=== PATIENT | female | born 1960 | race Caucasian/White ===

== ENCOUNTER 2018-09-07 18:28 | Inpatient (IN) | payer OTHER ==
[2018-09-07] MEDS ORDERED: SODIUM CHLORIDE 0.9% 1,000 ML IV STA (18:56)
[2018-09-07] MEDS ORDERED: ACETAMINOPHEN TAB 325 MG TAB PO STA (19:07)
[2018-09-07] MEDS ORDERED: IPRATROPIUM-ALBUTEROL 3 ML NEB INHALATION STA ×2 (19:11→19:59)
[2018-09-07] MEDS ORDERED: methylPREDNISolone SOD SUCCI 125 MG/2 ML VIAL IV STA (19:11)
--- NOTE | 2018-09-07 19:19 | ED ---
SOB HPI - General Chief Complaint: Shortness of Breath Stated Complaint: sumeet, chest congestion Time Seen by Provider: 09/07/18 18:55 Source: patient Mode of arrival: ambulatory Limitations: no limitations - History of Present Illness Initial Comments: 57-year-old female past history of coronary artery bypass 2015, hypertension presenting today for chief complaint of shortness of breath. Patient states that since April she has had upper respiratory symptoms. She states he's began shortly after visiting [place]. Patient denies any international travel she states she is vaccinated. Patient states that for the past 2 weeks she has had increasing cough sputum production she says she's had significant chills. She is unsure if she's had a fever but has felt as though her throat has been scratchy. Patient denies history of cancer blood clots leg swelling patient denies any hemoptysis. Patient states she is 11 day smoker half pack per day ho wever has not had a cigarette 3 days due to increasing shortness of breath. Patient denies any chest pain she has name upper back pain. Patient denies any diarrhea nausea vomiting. Patient denies any headache or neck stiffness. When shortness of breath persisted today patient presents emergency department for evaluation. - Related Data Home Medications Medication Instructions Recorded Confirmed Acetaminophen Tab [Tylenol Tab] 650 mg PO Q4H PRN 09/07/18 09/07/18 Chlorpheniramine Maleate 4 mg PO Q4H PRN 09/07/18 09/07/18 [Chlor-Trimeton] Ibuprofen [Motrin] 600 mg PO Q6H PRN 09/07/18 09/07/18 Lisinopril [Zestril] 10 mg PO BID@0630,1730 09/07/18 09/07/18 Multivitamins, Thera [Multivitamin 1 tab PO DAILY@1030 09/07/18 09/07/18 (formulary)] Thiamine [Vitamin B-1] 100 mg PO DAILY@1030 09/07/18 09/07/18 cloNIDine HCL [Catapres] 0.1 mg PO TID PRN 09/07/18 09/07/18 traZODone HCL 50 - 150 mg PO HS 09/07/18 09/07/18 Allergies Allergy/AdvReac Type Severity Reaction Status Date / Time No Known Allergies Allergy Verified 09/07/18 20:15 Review of Systems ROS Statement: Those systems with pertinent positive or pertinent negative responses have been documented in the HPI. ROS Other: All systems not noted in ROS Statement are negative. Past Medical History Past Medical History: Hypertension History of Any Multi-Drug Resistant Organisms: None Reported Past Surgical History: Coronary Bypass/CABG Past Psychological History: Anxiety, Depression Smoking Status: Current every day smoker Past Alcohol Use History: Abuse Past Drug Use History: None Reported General Exam - General Exam Comments Initial Comments: General: The patient is awake and alert, in no distress. Eye: +3 mm pupils are equal, round and reactive to light, extra-ocular movement s are intact. No nystagmus. There is normal conjunctiva bilaterally. No signs of icterus. No photophobia Ears, nose, mouth and throat: There are moist mucous membranes and no oral lesions. Oropharynx was not erythematous there is no tonsillar enlargement exudates or lesions. Uvula midline. Tympanic membranes are not erythematous or is no effusions bulging or retraction. No tenderness to palpation of the mastoid. No anterior cervical lymphadenopathy. Rhinorrhea, clear and bilateral nares. No tripoding, no drooling. Neck: The neck is supple, there is no tenderness or JVD. No nuchal rigidity negative Brudzinski and Kernig Cardiovascular: There is a regular rate and rhythm. No murmur, rub or gallop is appreciated. Respiratory: Lungs sounds are diminished with expiratory wheeze. Respirations are non-labored, breath sounds are equal. Crackles audible at the left lower lung base. No stridor, rhonchi. No retractions or abdominal breathing. Gastrointestinal: Soft, non-distended, non-tender abdomen without masses or organomegaly noted. There is no rebound or guarding present. Bowel sounds are unremarkable. Musculoskeletal: Normal ROM, no tenderness. Strength 5/5. Sensation intact. Radial pulses equal bilaterally 2+. Neurological: A&O x 3. CN II-XII intact, There are no obvious motor or sensory deficits. Coordination appears grossly intact. Speech appears normal, no muffling. Skin: Skin is warm and dry and no rashes or lesions are noted. No extremity edema Psychiatric: Cooperative Limitations: no limitations Course Vital Signs 09/07/18 09/07/18 09/07/18 18:45 19:15 19:34 Temperature 98.7 F 100.1 F H Pulse Rate 91 82 Respiratory 24 Rate Blood Pressure 144/78 O2 Sat by Pulse 92 L Oximetry 09/07/18 09/07/18 09/07/18 19:38 20:00 20:30 Temperature Pulse Rate 84 88 Respiratory Rate Blood Pressure 188/102 O2 Sat by Pulse 100 Oximetry 09/07/18 09/07/18 20:34 20:38 Temperature Pulse Rate 75 87 Respiratory 18 Rate Blood Pressure 159/93 O2 Sat by Pulse 98 Oximetry Medical Decision Making - Medical Decision Making [id number] female presenting for shortness of breath. No complaints of CP. EKG no acute findings. Troponin (-). Denies leg swelling, hemoptysis, cancer, recent surgeries, clotting disorders. Patient has audible expiratory wheeze admission lung sounds as well as a significant left lung base crackle. Patient notes upper respiratory symptoms. Patient febrile upon arrival. Patient heart rate was elevated at 93. Patient was given ceftriaxone the emergency department. Chest x-ray reveals a small left-sided pleural effusion.Infiltrate was noted. However clinically patient appears to have a kidney required pneumonia. Patient is not a smoker given the extent of the extremities despite multiple DuoNeb treatments I feel patient has a component of COPD exacerbation. Patient is given Solu-Medrol in the emergency department, as well as Mucinex. Attending provider Brooks did evaluate patient in person. At this time we feel patient would benefit from admission for scheduled breathing treatments, IV abx, and steroids. Patient is agreeable with admission. Dr. Guy spoke with admitted provider Dr. Lucia who accepted patient. - Lab Data Result diagrams: 09/07/18 19:30 09/07/18 19:30 Lab Results 09/07/18 09/07/18 09/07/18 Range/Units 19:30 19:30 19:30 WBC 9.2 (3.8-10.6) k/uL RBC 4.22 (3.80-5.40) m/uL Hgb 12.7 (11.4-16.0) gm/dL Hct 40.8 (34.0-46.0) % MCV 96.6 (80.0-100.0) fL MCH 30.1 (25.0-35.0) pg MCHC 31.2 (31.0-37.0) g/dL RDW 15.0 (11.5-15.5) % Plt Count 157 (150-450) k/uL Neutrophils % 78 % Lymphocytes % 12 % Monocytes % 5 % Eosinophils % 2 % Basophils % 1 % Neutrophils # 7.2 (1.3-7.7) k/uL Lymphocytes # 1.1 (1.0-4.8) k/uL Monocytes # 0.5 (0-1.0) k/uL Eosinophils # 0.2 (0-0.7) k/uL Basophils # 0.0 (0-0.2) k/uL PT (9.0-12.0) sec INR (<1.2) APTT (22.0-30.0) sec Sodium 142 (137-145) mmol/L Potassium 5.2 H (3.5-5.1) mmol/L Chloride 108 H (98-107) mmol/L Carbon Dioxide 26 (22-30) mmol/L Anion Gap 8 mmol/L BUN 8 (7-17) mg/dL Creatinine 0.79 (0.52-1.04) mg/dL Est GFR (CKD-EPI)AfAm >90 (>60 ml/min/1.73 sqM) Est GFR (CKD-EPI)NonAf 84 (>60 ml/min/1.73 sqM) Glucose 113 H (74-99) mg/dL Plasma Lactic Acid Indra (0.7-2.0) mmol/L Calcium 9.3 (8.4-10.2) mg/dL Total Bilirubin 0.6 (0.2-1.3) mg/dL AST 50 H (14-36) U/L ALT 28 (9-52) U/L Alkaline Phosphatase 54 (38-126) U/L Troponin I (0.000-0.034) ng/mL NT-Pro-B Natriuret Pep 202 pg/mL Total Protein 7.1 (6.3-8.2) g/dL Albumin 4.0 (3.5-5.0) g/dL Influenza Type A RNA (Not Detectd) Influenza Type B (PCR) (Not Detectd) 09/07/18 09/07/18 09/07/18 Range/Units 19:30 19:30 19:30 WBC (3.8-10.6) k/uL RBC (3.80-5.40) m/uL Hgb (11.4-16.0) gm/dL Hct (34.0-46.0) % MCV (80.0-100.0) fL MCH (25.0-35.0) pg MCHC (31.0-37.0) g/dL RDW (11.5-15.5) % Plt Count (150-450) k/uL Neutrophils % % Lymphocytes % % Monocytes % % Eosinophils % % Basophils % % Neutrophils # (1.3-7.7) k/uL Lymphocytes # (1.0-4.8) k/uL Monocytes # (0-1.0) k/uL Eosinophils # (0-0.7) k/uL Basophils # (0-0.2) k/uL PT 10.1 (9.0-12.0) sec INR 0.9 (<1.2) APTT 23.6 (22.0-30.0) sec Sodium (137-145) mmol/L Potassium (3.5-5.1) mmol/L Chloride (98-107) mmol/L Carbon Dioxide (22-30) mmol/L Anion Gap mmol/L BUN (7-17) mg/dL Creatinine (0.52-1.04) mg/dL Est GFR (CKD-EPI)AfAm (>60 ml/min/1.73 sqM) Est GFR (CKD-EPI)NonAf (>60 ml/min/1.73 sqM) Glucose (74-99) mg/dL Plasma Lactic Acid Indra 1.4 (0.7-2.0) mmol/L Calcium (8.4-10.2) mg/dL Total Bilirubin (0.2-1.3) mg/dL AST (14-36) U/L ALT (9-52) U/L Alkaline Phosphatase (38-126) U/L Troponin I <0.012 (0.000-0.034) ng/mL NT-Pro-B Natriuret Pep pg/mL Total Protein (6.3-8.2) g/dL Albumin (3.5-5.0) g/dL Influenza Type A RNA (Not Detectd) Influenza Type B (PCR) (Not Detectd) 09/07/18 Range/Units 19:30 WBC (3.8-10.6) k/uL RBC (3.80-5.40) m/uL Hgb (11.4-16.0) gm/dL Hct (34.0-46.0) % MCV (80.0-100.0) fL MCH (25.0-35.0) pg MCHC (31.0-37.0) g/dL RDW (11.5-15.5) % Plt Count (150-450) k/uL Neutrophils % % Lymphocytes % % Monocytes % % Eosinophils % % Basophils % % Neutrophils # (1.3-7.7) k/uL Lymphocytes # (1.0-4.8) k/uL Monocytes # (0-1.0) k/uL Eosinophils # (0-0.7) k/uL Basophils # (0-0.2) k/uL PT (9.0-12.0) sec INR (<1.2) APTT (22.0-30.0) sec Sodium (137-145) mmol/L Potassium (3.5-5.1) mmol/L Chloride (98-107) mmol/L Carbon Dioxide (22-30) mmol/L Anion Gap mmol/L BUN (7-17) mg/dL Creatinine (0.52-1.04) mg/dL Est GFR (CKD-EPI)AfAm (>60 ml/min/1.73 sqM) Est GFR (CKD-EPI)NonAf (>60 ml/min/1.73 sqM) Glucose (74-99) mg/dL Plasma Lactic Acid Indra (0.7-2.0) mmol/L Calcium (8.4-10.2) mg/dL Total Bilirubin (0.2-1.3) mg/dL AST (14-36) U/L ALT (9-52) U/L Alkaline Phosphatase (38-126) U/L Troponin I (0.000-0.034) ng/mL NT-Pro-B Natriuret Pep pg/mL Total Protein (6.3-8.2) g/dL Albumin (3.5-5.0) g/dL Influenza Type A RNA Not Detected (Not Detectd) Influenza Type B (PCR) Not Detected (Not Detectd) - EKG Data EKG Comments: Ventricular rate 82 bpm, AZ interval 174 ms, QRS duration 76 ms, QT/QTC 370/441 ms. There is no [address] elevation or depression. Nonspecific T-wave. Disposition Clinical Impression: Shortness of breath, COPD exacerbation, Community acquired pneumonia Disposition: ADMITTED IP TO THIS HOSP Condition: Stable Is patient prescribed a controlled substance at d/c from ED?: No Referrals: None,Stated [Primary Care Provider] - 1-2 days Time of Disposition: 21:07 Decision to Admit Reason: Admit from EC Decision Date: 09/07/18 Decision Time: 21:07
[2018-09-07 19:46] LABS: Basophils % (A) 1 %; Eosinophils # (A) 0.2 k/uL (0-0.7); Eosinophils % (A) 2 %; HCT 40.8 % (34.0-46.0); HGB 12.7 gm/dL (11.4-16.0); Lymphocytes # (A) 1.1 k/uL (1.0-4.8); Lymphocytes % (A) 12 %; MCH 30.1 pg (25.0-35.0); MCHC 31.2 g/dL (31.0-37.0); MCV 96.6 fL (80.0-100.0); Monocytes # (A) 0.5 k/uL (0-1.0); Monocytes % (A) 5 %; Neutrophils # (A) 7.2 k/uL (1.3-7.7); Neutrophils % (A) 78 %; Platelet Count 157 k/uL (150-450); RBC 4.22 m/uL (3.80-5.40); WBC 9.2 k/uL (3.8-10.6)
[2018-09-07 19:55] LABS: ALT 28 U/L (9-52); AST 50 U/L (14-36); African American GFR (CKD) >90 (>60 ml/min/1.73 sqM); Alkaline Phosphatase 54 U/L (38-126); Anion Gap 8 mmol/L; Blood Urea Nitrogen 8 mg/dL (7-17); Calcium 9.3 mg/dL (8.4-10.2); Carbon Dioxide 26 mmol/L (22-30); Chloride 108 mmol/L (98-107); Glucose 113 mg/dL (74-99); INR 0.9 (<1.2); Partial Thromboplastin Time 23.6 sec (22.0-30.0); Prothrombin Time 10.1 sec (9.0-12.0); Sodium 142 mmol/L (137-145); Total Bilirubin 0.6 mg/dL (0.2-1.3); Total Protein 7.1 g/dL (6.3-8.2)
[2018-09-07 20:00] LABS: Potassium 5.2 mmol/L (3.5-5.1)
--- NOTE | 2018-09-07 20:09 | XR ---
EXAMINATION TYPE: XR chest 2V DATE OF EXAM: 09/07/2018 COMPARISON: NONE HISTORY: Difficulty in breathing, cough, and congestion. TECHNIQUE: Frontal and lateral views of the chest are obtained. FINDINGS: Overlying sternal wires and mediastinal clips are present bilaterally. There is tiny left- sided pleural effusion with blunting of posterior costophrenic angle on lateral view. No suspicious f ocal airspace opacity or pneumothorax. The cardiac silhouette size is upper limits of normal. The o sseous structures are intact. IMPRESSION: Tiny left pleural effusion without suspicious focal infiltrate.
[2018-09-07] MEDS ORDERED: guaiFENesin 600 MG TABLET.ER PO STA (20:33)
[2018-09-07] MEDS ORDERED: LORazepam 2 MG/ML INJ IV PRN ×3 (21:55)
[2018-09-07] MEDS ORDERED: THIAMINE 100 MG/ML 2 ML VIAL IM STA (21:55)
[2018-09-07] MEDS ORDERED: hydrALAZINE HCL 20 MG/ML 1 ML VIAL IVP STA (21:56)
[2018-09-07] MEDS: AZITHROMYCIN 500 MG TAB PO SCH (22:08)
[2018-09-07] MEDS: BENZONATATE 100 MG CAP PO SCH (22:59)
[2018-09-08] MEDS: IPRATROPIUM-ALBUTEROL 3 ML NEB INHALATION PRN ×3 (02:56→11:03)
[2018-09-08] MEDS: ACETAMINOPHEN TAB 325 MG TAB PO PRN ×2 (03:55→14:49)
[2018-09-08] MEDS ORDERED: predniSONE 20 MG TAB PO SCH (09:00)
[2018-09-08] MEDS: BENZONATATE 100 MG CAP PO SCH ×3 (09:05→22:18)
[2018-09-08] MEDS: guaiFENesin 600 MG TABLET.ER PO SCH ×2 (09:05→22:19)
[2018-09-08] MEDS: THIAMINE 100 MG TAB PO SCH ×2 (09:05→17:29)
[2018-09-08] MEDS: hydrALAZINE HCL 20 MG/ML 1 ML VIAL IVP PRN ×2 (09:07→21:04)
[2018-09-08] MEDS: AZITHROMYCIN 500 MG TAB PO SCH (10:02)
[2018-09-08 11:41] LABS: Glucose,Whole Blood 131 mg/dL (75-99)
[2018-09-08] MEDS ORDERED: IBUPROFEN 600 MG TAB PO PRN (15:24)
[2018-09-08] MEDS ORDERED: ACETAMINOPHEN TAB 325 MG TAB PO PRN (15:24)
[2018-09-08] MEDS ORDERED: diphenhydrAMINE 25 MG CAP PO PRN (15:24)
[2018-09-08] MEDS ORDERED: TEMAZEPAM 15 MG CAP PO PRN (15:27)
[2018-09-08] MEDS ORDERED: INSULIN REGULAR 100 UNIT/ML VIAL IV PRN (15:28)
[2018-09-08] MEDS: IPRATROPIUM-ALBUTEROL 3 ML NEB INHALATION SCH ×3 (15:43→20:39)
[2018-09-08 17:05] LABS: Glucose,Whole Blood 140 mg/dL (75-99)
[2018-09-08] MEDS: LISINOPRIL 10 MG TAB PO SCH (17:29)
[2018-09-08] MEDS: methylPREDNISolone SOD SUCCI 125 MG/2 ML VIAL IV SCH (17:30)
[2018-09-08] MEDS: INSULIN ASPART (NovoLOG) 100 UNIT/ML VIAL SQ SCH ×2 (17:45→21:06)
--- NOTE | 2018-09-08 17:49 | P.CNPUL ---
History of Present Illness Consult date: 09/08/18 Requesting physician: Anthony Lucia Reason for consult: COPD Chief complaint: shortness of breath and chest congestion History of present illness: this is a 57-year-old female known history of coronary artery disease, previous CABG in 2015 at [facility], history of hypertension, recovered alcoholic, smoker, patient was admitted through the emergency room earlier today with 2 weeks history of cough wheezing shortness of breath. Cough is productive with yellow phlegm, she had some chills, no documented fevers. Patient also been complaining of a scratchy throat. She was recently in [place], but when she came back to [place] her symptoms have become much worse. Patient is normally a smoker but she hasn't smoked in the last 3 days. Chest x-ray on admission showed no evidence of infiltrate. Patient was admitted with the impression of acute exacerbation of COPD and purulent tracheobronchitis. Denies any chest pain, no hemoptysis, denies any symptoms of GERD, denies any symptoms of postnasal drip. Patient is normally not on any bronchodilators, and she was never diagnosed as having COPD. Review of Systems CONSTITUTIONAL: No fever, no malaise, no fatigue. HEENT: No recent visual problems or hearing problems. Denied any sore throat. CARDIOVASCULAR: No orthopnea, PND, no palpitations, no syncope. PULMONARY: as noted in HPI, mostly shortness of breath cough wheezing cough is productive with yellow phlegm. GASTROINTESTINAL: No diarrhea, no nausea, no vomiting, no abdominal pain. Normoactive bowel sounds. NEUROLOGICAL: No headaches, no weakness, no numbness. history of right sided hemiparesis secondary to electrocution while on the job. HEMATOLOGICAL: Denies any bleeding or petechiae. GENITOURINARY: denies any hematuria frequency or urgency MUSCULOSKELETAL/RHEUMATOLOGICAL: Denies any joint pain, swelling, or any muscle pain. ENDOCRINE: Denies any polyuria or polydipsia. Past Medical History Past Medical History: Hypertension Additional Past Medical History / Comment(s): Depression History of Any Multi-Drug Resistant Organisms: None Reported Past Surgical History: Coronary Bypass/CABG Past Anesthesia/Blood Transfusion Reactions: No Reported Reaction Past Psychological History: Anxiety, Depression Smoking Status: Current every day smoker Past Alcohol Use History: Abuse Past Drug Use History: None Reported - Past Family History Mother Additional Family Medical History / Comment(s): colitis Father Additional Family Medical History / Comment(s): still alive Medications and Allergies Home Medications Medication Instructions Recorded Confirmed Type Acetaminophen Tab [Tylenol Tab] 650 mg PO Q4H PRN 09/07/18 09/07/18 History Chlorpheniramine Maleate 4 mg PO Q4H PRN 09/07/18 09/07/18 History [Chlor-Trimeton] Ibuprofen [Motrin] 600 mg PO Q6H PRN 09/07/18 09/07/18 History Lisinopril [Zestril] 10 mg PO BID@0630,1730 09/07/18 09/07/18 History Multivitamins, Thera [Multivitamin 1 tab PO DAILY@1030 09/07/18 09/07/18 History (formulary)] Thiamine [Vitamin B-1] 100 mg PO DAILY@1030 09/07/18 09/07/18 History cloNIDine HCL [Catapres] 0.1 mg PO TID PRN 09/07/18 09/07/18 History traZODone HCL 50 - 150 mg PO HS 09/07/18 09/07/18 History Allergies Allergy/AdvReac Type Severity Reaction Status Date / Time No Known Allergies Allergy Verified 09/07/18 20:15 Physical Exam Vitals: Vital Signs Temp Pulse Pulse Resp BP BP Pulse Ox 09/08/18 15:57 90 09/08/18 15:47 90 09/08/18 15:00 98.3 F 97 12 177/82 95 09/08/18 11:14 98 09/08/18 11:03 86 09/08/18 08:17 94 09/08/18 07:52 85 95 09/08/18 07:18 94 L 09/08/18 07:15 98.5 F 82 14 174/91 90 L 09/08/18 03:20 92 09/08/18 02:56 88 95 09/08/18 01:30 98.4 F 78 17 118/49 96 09/07/18 22:50 98.5 F 89 18 188/81 94 L 09/07/18 22:32 160/86 09/07/18 22:17 98 F 185/97 93 L 09/07/18 20:38 87 09/07/18 20:34 75 18 159/93 98 09/07/18 20:30 88 09/07/18 20:00 188/102 100 09/07/18 19:38 84 09/07/18 19:34 82 09/07/18 19:15 100.1 F H 09/07/18 18:45 98.7 F 91 24 144/78 92 L Intake and Output 09/08/18 09/08/18 09/08/18 06:59 14:59 22:59 Intake Total 480 1100 Balance 480 1100 Intake: Intake, IV Titration 100 Amount cefTRIAXone 1 gm In 100 Sodium Chloride 0.9% 50 ml @ 100 mls/hr IVPB ONCE STA Rx#:[id number] Oral 480 1000 Other: # Voids 1 Physical Exam: Revealed a 57-year-old white female pleasant, in no distress. Head: Atraumatic, normocephalic HEENT:[Neck is supple.] [No neck masses.] [No thyromegaly.] [No JVD.]PERRLA, EOMI, no icterus. Moist mucous membranes. Throat is clear. Chest: [rhonchi and wheezes noted bilaterally more so on forced expiratory maneuver. Cardiac Exam: [Normal S1 and S2, no S3 gallop, no murmur.] Abdomen: [Soft, nontender, no megaly, no rebound, no guarding, normal bowel sounds.] Extremities: [No clubbing, no edema, no cyanosis.] Neurological Exam: [No focal neurologic deficit.]alert oriented 3. Psychiatric: Normal mood affect and mental status examination. Skin: No rashes. Lymphatics: No lymphadenopathy. Results - Laboratory Findings CBC and BMP: 09/07/18 19:30 09/07/18 19:30 PT/INR, D-dimer PT 10.1 sec (9.0-12.0) 09/07/18 19:30 INR 0.9 (<1.2) 09/07/18 19:30 Abnormal lab findings: Abnormal Labs 09/07/18 09/08/18 09/08/18 19:30 11:39 17:03 Potassium 5.2 H Chloride 108 H Glucose 113 H POC Glucose (mg/dL) 131 H 140 H AST 50 H - Diagnostic Findings Chest x-ray: image reviewed (as noted in HPI.) Assessment and Plan Assessment: Acute exacerbation of COPD Nicotine dependence syndrome Acute purulent tracheobronchitis history of coronary artery disease and previous CABG Recovered alcoholic. Recommendation: Fully agree with the present treatment plan including antibiotics, bronchodilators, steroids, consider regarding smoking cessation, reviewed and discussed with the patient her chest x-ray, her laboratory findings, and I expect her to do well in the next 24-48 hours, and to stay discharge in the next 24-48 hours. We'll continue to follow.
--- NOTE | 2018-09-08 18:01 | HP ---
HISTORY AND PHYSICAL CHIEF COMPLAINT: Shortness of breath. HISTORY OF PRESENT ILLNESS: This 57-year-old woman with a past medical history of multiple medical problems, including hypertension, depression, history of CAD, CABG, history of anxiety, depression, being followed by no primary physician in the outpatient setting, recently spent time in [place]. The patient apparently had upper respiratory symptoms and some sinus drainage. The patient also had some increasing cough and sputum production. The patient apparently was exposed to red dye, also. The patient went to [place] for alcohol rehab, where she was found to have significant shortness of breath. The patient was taken to [facility] and admitted for further evaluation and treatment. There is no history of any fever, rigor or chills. No history of any headache, loss of consciousness, seizures at this time. PAST MEDICAL HISTORY: 1. History of hypertension. 2. Depression. 3. CAD, CABG. 4. Anxiety, depression. HOME MEDICATIONS: 1. Trazodone 50 - 150 mg p.o. at bedtime. 2. Catapres 0.1 t.i.d. p.r.n. 3. Vitamin B1 100 mg p.o. daily. 4. Multivitamins 1 p.o. daily. 5. Zestril 10 mg p.o. b.i.d. 6. Motrin 600 mg p.o. q.6. 7. Chlor-Trimeton 4 mg q.4 p.r.n. 8. Tylenol 650 q.4 p.r.n. ALLERGIES: NONE. FAMILY HISTORY: History of colitis in the family. SOCIAL HISTORY: History of smoking. History of alcohol. REVIEW OF SYSTEMS: ENT: No diminished hearing. No diminished vision. CARDIOVASCULAR SYSTEM: No angina, palpitations. RESPIRATORY SYSTEM: As mentioned earlier. GI: No nausea, vomiting. : No dysuria or retention. NERVOUS SYSTEM: No numbness, weakness. ALLERGY/IMMUNOLOGY: No asthma, hayfever. MUSCULOSKELETAL: As mentioned earlier. HEMATOLOGY/ONCOLOGY: No history of anemia. ENDOCRINE: No history of diabetes, hypothyroidism. CONSTITUTIONAL: As mentioned earlier. DERMATOLOGY: Negative. RHEUMATOLOGY: Negative. PSYCHIATRY: As mentioned earlier. PHYSICAL EXAMINATION: Alert and oriented x3. Pulse 94, blood pressure 174/91, respiration 14, temperature 98.4, pulse ox 90% on room air. HEENT: Conjunctivae normal. Oral mucosa moist. NECK: No jugular venous distention. No carotid bruit. No lymph node enlargement. CARDIOVASCULAR SYSTEM: S1, S2 muffled. RESPIRATORY SYSTEM: Breath sounds diminished at the bases. Bilateral scattered rhonchi and crackles. Expiratory wheezing also present. ABDOMEN: Soft, non-tender. No mass palpable. LEGS: No edema. No swelling. NERVOUS SYSTEM: Higher functions as mentioned earlier. Moves all 4 limbs. No focal motor or sensory deficit. LYMPHATICS: No lymph node palpable in neck, axillae or groin. SKIN: No ulcer, rash, bleeding. JOINTS: No active deforming arthropathy. LABS: CBC within normal limits. Sodium 142, potassium 5.2, glucose 113 and 131. ASSESSMENT: 1. Chronic obstructive pulmonary disease, acute exacerbation, with acute purulent tracheobronchitis. 2. Hypertension. 3. Depression. 4. Coronary artery disease, coronary artery bypass grafting. 5. Anxiety, depression. 6. Rule out bronchial asthma. 7. History of ETOH. 8. Increased potassium. RECOMMENDATIONS AND DISCUSSION: In this 57-year-old woman who presented with multiple complex medical issues, we will monitor the patient closely, continue the current medications, continue with symptomatic treatment. I recommend intensive bronchodilators, steroids and antibiotics. I also recommend consultation with Dr. Barraza from the pulmonary point of view and then continue to monitor. DVT prophylaxis. Further recommendations to follow. I also recommend close followup with a primary physician in the outpatient setting. Smoking cessation. Prognosis guarded. Further recommendations to follow. MMODL / IJN: [id number] /
[2018-09-08] MEDS: FORMOTEROL FUMARATE 20 MCG/2 ML NEBU INHALATION SCH ×2 (20:18→20:39)
[2018-09-08] MEDS: BUDESONIDE 1 MG/2 ML NEBU INHALATION SCH ×2 (20:18→20:39)
[2018-09-08 20:36] LABS: Glucose,Whole Blood 128 mg/dL (75-99)
[2018-09-08] MEDS ORDERED: SODIUM CHLORIDE 0.9% 1,000 ML IV ONE (22:14)
[2018-09-08] MEDS: cloNIDine HCL 0.1 MG TAB PO PRN (22:18)
[2018-09-08] MEDS: HEPARIN SODIUM,PORCINE 5,000 UNIT/ML 1 ML VIAL SQ SCH ×2 (22:18→22:21)
[2018-09-09] MEDS: traZODone HCL 50 MG TAB PO SCH ×2 (00:19→21:44)
[2018-09-09] MEDS: methylPREDNISolone SOD SUCCI 125 MG/2 ML VIAL IV SCH ×3 (00:19→12:27)
[2018-09-09] MEDS: LISINOPRIL 10 MG TAB PO SCH ×2 (05:52→17:40)
[2018-09-09] MEDS: ACETAMINOPHEN TAB 325 MG TAB PO PRN (06:01)
[2018-09-09 07:10] LABS: Glucose,Whole Blood 134 mg/dL (75-99)
[2018-09-09 08:00] LABS: Basophils % (A) 0 %; Eosinophils # (A) 0.1 k/uL (0-0.7); Eosinophils % (A) 1 %; HCT 43.5 % (34.0-46.0); HGB 13.4 gm/dL (11.4-16.0); Hypochromasia Slight; Lymphocytes % (A) 8 %; MCH 30.1 pg (25.0-35.0); MCHC 30.9 g/dL (31.0-37.0); MCV 97.3 fL (80.0-100.0); Mean Platelet Volume 10.2; Monocytes # (A) 0.1 k/uL (0-1.0); Monocytes % (A) 1 %; Neutrophils # (A) 10.2 k/uL (1.3-7.7); Neutrophils % (A) 90 %; Platelet Count 171 k/uL (150-450); RBC 4.47 m/uL (3.80-5.40); RDW 15.9 % (11.5-15.5); WBC 11.4 k/uL (3.8-10.6)
[2018-09-09] MEDS: INSULIN ASPART (NovoLOG) 100 UNIT/ML VIAL SQ SCH ×4 (08:10→20:57)
[2018-09-09 08:11] LABS: African American GFR (CKD) >90 (>60 ml/min/1.73 sqM); Anion Gap 12 mmol/L; Blood Urea Nitrogen 11 mg/dL (7-17); Calcium 9.9 mg/dL (8.4-10.2); Carbon Dioxide 21 mmol/L (22-30); Chloride 110 mmol/L (98-107); Glucose 128 mg/dL (74-99); Potassium 4.3 mmol/L (3.5-5.1); Sodium 143 mmol/L (137-145)
[2018-09-09] MEDS: HEPARIN SODIUM,PORCINE 5,000 UNIT/ML 1 ML VIAL SQ SCH ×2 (08:11→20:57)
[2018-09-09] MEDS: NICOTINE 14MG/24HR PATCH TRANSDERM SCH (08:14)
[2018-09-09] MEDS: AZITHROMYCIN 500 MG TAB PO SCH (08:15)
[2018-09-09] MEDS: guaiFENesin 600 MG TABLET.ER PO SCH (08:15)
[2018-09-09] MEDS: FORMOTEROL FUMARATE 20 MCG/2 ML NEBU INHALATION SCH (08:16)
[2018-09-09] MEDS: PANTOPRAZOLE 40 MG TABLET PO SCH (08:16)
[2018-09-09] MEDS: THIAMINE 100 MG TAB PO SCH ×2 (08:16→17:40)
[2018-09-09] MEDS: IPRATROPIUM-ALBUTEROL 3 ML NEB INHALATION SCH (08:16)
[2018-09-09] MEDS: BENZONATATE 100 MG CAP PO SCH ×3 (08:16→21:44)
[2018-09-09] MEDS: BUDESONIDE 1 MG/2 ML NEBU INHALATION SCH ×2 (08:16→19:29)
[2018-09-09] MEDS: MULTIVITAMINS, THERA 1 EACH TAB PO SCH (08:16)
[2018-09-09] MEDS: ALBUTEROL NEBULIZED 2.5 MG/3 ML INHALATION PRN ×3 (12:00→20:32)
[2018-09-09 12:13] LABS: Glucose,Whole Blood 123 mg/dL (75-99)
--- NOTE | 2018-09-09 13:54 | P.PN ---
Subjective Progress Note Date: 09/09/18 Principal diagnosis: Acute exacerbation of COPD this is a 57-year-old female known history of coronary artery disease, previous CABG in 2015 at [facility], history of hypertension, recovered alcoholic, smoker, patient was admitted through the emergency room earlier today with 2 weeks history of cough wheezing shortness of breath. Cough is productive with yellow phlegm, she had some chills, no documented fevers. Patient also been complaining of a scratchy throat. She was recently in [place], but when she came back to [place] her symptoms have become much worse. Patient is normally a smoker but she hasn't smoked in the last 3 days. Chest x-ray on admi ssion showed no evidence of infiltrate. Patient was admitted with the impression of acute exacerbation of COPD and purulent tracheobronchitis. Denies any chest pain, no hemoptysis, denies any symptoms of GERD, denies any symptoms of postnasal drip. Patient is normally not on any bronchodilators, and she was never diagnosed as having COPD. Patient was reevaluated today on 09/09/2018, patient is feeling better, but she continues to have intermittent episodes of cough wheezing shortness of breath. Patient also complained about her updrafts making her quite tachycardic, and she was experiencing palpitations. This morning some of them were placed on hold, and at this point I recommended stopping Atrovent, stopping Perforomist, but we'll continue albuterol, and we'll continue Pulmicort. In the meantime we'll continue IV Solu-Medrol, and I would likely recommend discharging the patient ho me in the next 24 hours. Patient was made aware that albuterol will make her a bit tachycardic, and no Xopenex is available in our formulary to be given instead of albuterol. Nonetheless, patient is feeling better compared to yesterday. Objective - Vital Signs Vital signs: Vital Signs Temp 98.1 F 09/09/18 07:45 Pulse 93 09/09/18 12:09 Resp 16 09/09/18 08:00 BP 166/76 09/09/18 07:45 Pulse Ox 92 L 09/09/18 07:45 Intake & Output 09/08/18 09/09/18 09/09/18 18:59 06:59 18:59 Intake Total 1100 1000 Balance 1100 1000 Intake: Intake, IV Titration 100 1000 Amount Sodium Chloride 0.9% 1, 1000 000 ml @ 999 mls/hr IV . Q1H1M ONE Rx#:[id number] cefTRIAXone 1 gm In 100 Sodium Chloride 0.9% 50 ml @ 100 mls/hr IVPB ONCE STA Rx#:[id number] Oral 1000 - Exam Physical Exam: Revealed a 57-year-old white female pleasant, in no distress. Head: Atraumatic, normocephalic HEENT:[Neck is supple.] [No neck masses.] [No thyromegaly.] [No JVD.]PERRLA, EOMI, no icterus. Moist mucous membranes. Throat is clear. Chest: [Wheezing noted bilaterally more so the left base and more so on forced expiratory maneuver.. Cardiac Exam: [Normal S1 and S2, no S3 gallop, no murmur.] Abdomen: [Soft, nontender, no megaly, no rebound, no guarding, normal bowel sounds.] Extremities: [No clubbing, no edema, no cyanosis.] Neurological Exam: [No focal neurologic deficit.]alert oriented 3. Psychiatric: Normal mood affect and mental status examination. Skin: No rashes. Lymphatics: No lymphadenopathy. - Labs CBC & Chem 7: 09/09/18 07:15 09/09/18 07:15 Labs: Abnormal Lab Results - Last 24 Hours (Table) 09/08/18 09/08/18 09/09/18 Range/Units 17:03 20:35 06:59 WBC (3.8-10.6) k/uL MCHC (31.0-37.0) g/dL RDW (11.5-15.5) % Neutrophils # (1.3-7.7) k/uL Chloride (98-107) mmol/L Carbon Dioxide (22-30) mmol/L Glucose (74-99) mg/dL POC Glucose (mg/dL) 140 H 128 H 134 H (75-99) mg/dL 09/09/18 09/09/18 09/09/18 Range/Units 07:15 07:15 12:02 WBC 11.4 H (3.8-10.6) k/uL MCHC 30.9 L (31.0-37.0) g/dL RDW 15.9 H (11.5-15.5) % Neutrophils # 10.2 H (1.3-7.7) k/uL Chloride 110 H (98-107) mmol/L Carbon Dioxide 21 L (22-30) mmol/L Glucose 128 H (74-99) mg/dL POC Glucose (mg/dL) 123 H (75-99) mg/dL Microbiology - Last 24 Hours (Table) 09/07/18 19:50 Blood Culture - Preliminary Blood No Growth after 24 hours Assessment and Plan Assessment: Acute exacerbation of COPD Nicotine dependence syndrome Acute purulent tracheobronchitis history of coronary artery disease and previous CABG Recovered alcoholic. Recommendation: Continue present treatment plan including bronchodilators and Solu-Medrol. Continue antibiotics. However considering the patient is complaining of tachycardia with her updrafts, will discontinue Perforomist, disc ontinue Atrovent, continue albuterol and Pulmicort. Continue Solu-Medrol, and we will reassess in the next 24 hours whether the patient would be ready for discharge planning. We'll continue to follow Time with Patient: Less than 30
[2018-09-09 16:46] LABS: Glucose,Whole Blood 160 mg/dL (75-99)
--- NOTE | 2018-09-09 17:37 | PN ---
PROGRESS NOTE DATE OF SERVICE: 09/09/2018. This 57-year-old woman was admitted with shortness of breath and chronic obstructive pulmonary disease exacerbation is improving significantly. No chest pain. No palpitations. No fever. Dr. Barraza is following the patient closely. EXAM: Alert and oriented x3. The pulse is 92. Blood pressure 173/87. Respirations 20. Temperature 98.2, pulse ox 93 percent on room air. HEENT: Conjunctivae normal. NECK: No jugular venous distention. CARDIOVASCULAR: S1, S2. RESPIRATION: Breath sounds diminished in the bases. Bilateral scattered rhonchi and crackles. Expiratory wheezing. ABDOMEN: Soft, nontender. LEGS: No edema. No swelling. CENTRAL NERVOUS SYSTEM: No focal deficits. LAB STUDIES: WBC 11.4, sodium 143, potassium 4.3. ASSESSMENT: 1. Chronic obstructive pulmonary disease acute exacerbation, acute purulent tracheobronchitis. 2. Hypertension. 3. Depression. 4. Coronary artery disease/coronary artery bypass grafting. 5. Anxiety, depression. 6. Rule out bronchial asthma. 7. History of ETOH. 8. Increased potassium. RECOMMENDATIONS AND DISCUSSION: Recommend to continue current medications, continue bronchodilators. Otherwise, taper the steroids further. Closely follow with Pulmonary. Increase ambulation. Possibly discharge in the next 24 hours. Guarded prognosis. Further recommendations to follow. MMODL / IJN: [id number] /
[2018-09-09 20:24] LABS: Glucose,Whole Blood 137 mg/dL (75-99)
[2018-09-09] MEDS: cloNIDine HCL 0.1 MG TAB PO PRN (21:44)
[2018-09-10] MEDS: methylPREDNISolone SOD SUCCI 40 MG/ML 1 ML VIAL IV SCH ×2 (00:16→11:31)
[2018-09-10] MEDS: LISINOPRIL 10 MG TAB PO SCH (05:55)
[2018-09-10 07:05] LABS: Glucose,Whole Blood 142 mg/dL (75-99)
[2018-09-10] MEDS: INSULIN ASPART (NovoLOG) 100 UNIT/ML VIAL SQ SCH ×2 (08:03→11:29)
[2018-09-10] MEDS: HEPARIN SODIUM,PORCINE 5,000 UNIT/ML 1 ML VIAL SQ SCH (08:04)
[2018-09-10] MEDS: NICOTINE 14MG/24HR PATCH TRANSDERM SCH (08:04)
[2018-09-10 08:21] LABS: Basophils % (A) 0 %; Eosinophils # (A) 0.2 k/uL (0-0.7); Eosinophils % (A) 2 %; HCT 42.9 % (34.0-46.0); HGB 13.5 gm/dL (11.4-16.0); Lymphocytes # (A) 1.2 k/uL (1.0-4.8); Lymphocytes % (A) 10 %; MCH 31.1 pg (25.0-35.0); MCHC 31.5 g/dL (31.0-37.0); MCV 98.8 fL (80.0-100.0); Macrocytosis Slight; Mean Platelet Volume 10.6; Monocytes # (A) 0.3 k/uL (0-1.0); Monocytes % (A) 2 %; Neutrophils # (A) 10.3 k/uL (1.3-7.7); Neutrophils % (A) 85 %; Platelet Count 146 k/uL (150-450); RBC 4.34 m/uL (3.80-5.40); RDW 15.8 % (11.5-15.5); WBC 12.1 k/uL (3.8-10.6)
[2018-09-10 09:14] VITALS: BP 166/84; RESP 22; TEMP 98.3
[2018-09-10 09:20] LABS: African American GFR (CKD) >90 (>60 ml/min/1.73 sqM); Anion Gap 9 mmol/L; Blood Urea Nitrogen 14 mg/dL (7-17); Calcium 9.6 mg/dL (8.4-10.2); Carbon Dioxide 24 mmol/L (22-30); Chloride 108 mmol/L (98-107); Glucose 141 mg/dL (74-99); Potassium 5.1 mmol/L (3.5-5.1); Sodium 141 mmol/L (137-145)
[2018-09-10] MEDS: ALBUTEROL NEBULIZED 2.5 MG/3 ML INHALATION PRN (09:20)
[2018-09-10] MEDS: BUDESONIDE 1 MG/2 ML NEBU INHALATION SCH (09:20)
[2018-09-10 09:33] VITALS: PULSE 74
[2018-09-10 11:30] LABS: Glucose,Whole Blood 111 mg/dL (75-99)
[2018-09-10] MEDS: PANTOPRAZOLE 40 MG TABLET PO SCH (11:31)
[2018-09-10] MEDS: THIAMINE 100 MG TAB PO SCH (11:31)
[2018-09-10] MEDS: guaiFENesin 600 MG TABLET.ER PO SCH (11:32)
[2018-09-10] MEDS: AZITHROMYCIN 500 MG TAB PO SCH (11:32)
[2018-09-10] MEDS: BENZONATATE 100 MG CAP PO SCH (11:32)
[2018-09-10] MEDS: MULTIVITAMINS, THERA 1 EACH TAB PO SCH (11:32)
--- NOTE | 2018-09-10 13:43 | P.PN ---
Subjective Progress Note Date: 09/10/18 Principal diagnosis: Acute exacerbation of chronic obstructive pulmonary disease this is a 57-year-old female known history of coronary artery disease, previous CABG in 2015 at [facility], history of hypertension, recovered alcoholic, smoker, patient was admitted through the emergency room earlier today with 2 weeks history of cough wheezing shortness of breath. Cough is productive with yellow phlegm, she had some chills, no documented fevers. Patient also b een complaining of a scratchy throat. She was recently in [place], but when she came back to [place] her symptoms have become much worse. Patient is normally a smoker but she hasn't smoked in the last 3 days. Chest x-ray on admission showed no evidence of infiltrate. Patient was admitted with the impression of acute exacerbation of COPD and purulent tracheobronchitis. Denies any chest pain, no hemoptysis, denies any symptoms of GERD, denies any symptoms of postnasal drip. Patient is normally not on any bronchodilators, and she was never diagnosed as having COPD. The patient seen today 09/10/2018 in follow-up on the regular medical floor. She is awake and alert in no acute distress. She is breathing easier today as compared to yesterday. Currently maintaining good O2 saturation in the 90s on room air. Afebrile. Blood culture reveals no growth. White count 12.1. Hemoglobin 13.5. Creatinine 0.76. She remains on bronchodilators, IV Solu- Medrol, empiric antibiotics in the form of azithromycin. NicoDerm patch is in place. Objective - Vital Signs Vital signs: Vital Signs Temp 98.3 F 09/10/18 09:12 Pulse 74 09/10/18 09:33 Resp 22 09/10/18 09:14 BP 166/84 09/10/18 09:12 Pulse Ox 93 L 09/10/18 00:20 Intake & Output 09/09/18 09/10/18 09/10/18 18:59 06:59 18:59 Intake Total 480 480 Balance 480 480 Intake: Oral 480 480 Other: Voiding Method Toilet # Voids 2 - Exam GENERAL EXAM: Alert, active, comfortable in no apparent distress. On room air. HEAD: Normocephalic. EYES: Normal reaction of pupils, equal size. NOSE: Clear with pink turbinates. THROAT: No erythema or exudates. NECK: No masses, no JVD. CHEST: No chest wall deformity. LUNGS: Equal air entry with faint end expiratory wheeze, diminished CVS: S1 and S2 normal with no audible murmur, regular rhythm. ABDOMEN: No hepatosplenomegaly, normal bowel sounds, no guarding or rigidity. SPINE: No scoliosis or deformity SKIN: No rashes CENTRAL NERVOUS SYSTEM: No focal deficits, tone is normal in all 4 extremities. EXTREMITIES: There is no peripheral edema. No clubbing, no cyanosis. Peripheral pulses are intact. - Labs CBC & Chem 7: 09/10/18 07:45 09/10/18 07:45 Labs: Abnormal Lab Results - Last 24 Hours (Table) 09/09/18 09/09/18 09/10/18 Range/Units 16:30 20:12 07:04 WBC (3.8-10.6) k/uL RDW (11.5-15.5) % Plt Count (150-450) k/uL Neutrophils # (1.3-7.7) k/uL Chloride (98-107) mmol/L Glucose (74-99) mg/dL POC Glucose (mg/dL) 160 H 137 H 142 H (75-99) mg/dL 09/10/18 09/10/18 09/10/18 Range/Units 07:45 07:45 11:27 WBC 12.1 H (3.8-10.6) k/uL RDW 15.8 H (11.5-15.5) % Plt Count 146 L (150-450) k/uL Neutrophils # 10.3 H (1.3-7.7) k/uL Chloride 108 H (98-107) mmol/L Glucose 141 H (74-99) mg/dL POC Glucose (mg/dL) 111 H (75-99) mg/dL Microbiology - Last 24 Hours (Table) 09/07/18 19:50 Blood Culture - Preliminary Blood No Growth after 48 hours Assessment and Plan Assessment: Impression: #1 Acute exacerbation of chronic obstructive pulmonary disease complicated by purulent tracheobronchitis. #2 Chronic and ongoing tobacco dependence. #3 History of coronary artery disease with previous coronary artery bypass grafting. #4 History of alcohol abuse. Plan: The patient was seen and evaluated by Dr. Barraza. She is cleared for discharge from the pulmonary standpoint. She would be continued on Symbicort, DuoNeb inhalations, prednisone burst and taper. Complete course of antibiotics. Follow-up in our office in 1-2 weeks' time. We could complete full pulmonary fu nction testing to evaluate the severity of her suspected COPD. She is again encouraged regarding the importance of complete smoking cessation. She is instructed to call sooner with any recurrence of symptoms or other questions or concerns. I, the cosigning physician, performed a history & physical examination of the patient. Lungs sounds with faint end expiratory wheeze, diminished. Maintaining good O2 saturations in the 90s on room air. I discussed the assessment and plan of care with my nurse practitioner, Tami Wood. I attest to the above note as dictated by her.
--- NOTE | 2018-09-10 21:13 | DS ---
DISCHARGE SUMMARY DATE OF SERVICE: 09/10/2018. FINAL DIAGNOSES: 1. Chronic obstructive pulmonary disease acute exacerbation with acute purulent tracheobronchitis. 2. Hypertension. 3. Depression. 4. Coronary artery disease/coronary artery bypass grafting history. 5. Anxiety, depression. 6. Rule out bronchial asthma. 7. History of ETOH. 8. Increased potassium. DISCHARGE DISPOSITION: The patient is being discharged in stable condition with guarded prognosis. HISTORY OF PRESENT ILLNESS: This 57-year-old woman with past medical problems of multiple medical problems being followed by no primary physician in the outpatient setting was recently moved back to [place]. The patient was in [facility] for alcohol rehab. Patient admitted with COPD exacerbation and purulent tracheobronchitis. Treated with intravenous steroids and bronchodilators, antibiotics along with Dr. Barraza. Patient improved significantly. I would recommend the patient closely follow up in the outpatient setting for PFTs and other evaluation. On exam, vitals are stable. Cardiovascular: S1, S2. Respirations: A few scattered rhonchi and crackles. Abdomen is soft. NERVOUS SYSTEM: No focal deficits. DISCHARGE ADVICE AND MEDICATIONS: 1. Diet is cardiac diet. 2. Activity limited until followup. 3. Follow up with Dr. Barraza as mentioned earlier. 4. Follow up with primary physician in 1-2 days. DISCHARGE MEDICATIONS: 1. Clonidine 0.1 p.o. t.i.d. p.r.n. 2. Chlor-Trimeton p.r.n. 4 mg q.4 p.r.n. 3. Motrin 600 mg q.6h p.r.n. 4. Multivitamins one p.o. daily. 5. Trazodone 50-150 mg p.o. q.h.s. 6. Tylenol p.r.n. 7. Vitamin B1 100 mg. 8. Zestril 10 mg p.o. b.i.d. 9. Habitrol 14 daily. 10.Mucinex 200 mg p.o. b.i.d. 11.Prednisone 40 mg daily for 3 days, 30 for 3 days, 20 for 3 days, 10 for 3 days and stop. 12.Albuterol 2 puffs q.6h p.r.n. 13.Symbicort 160/4.5 two puffs b.i.d. 14.Tylenol 650 q.6h p.r.n. 15.Zithromax 500 mg p.o. daily for 5 days. Once again the patient will be discharged in stable condition with guarded prognosis. Patient cleared medically for rehab at this time. CELINEL / RONENN: [id number] /
== END 2018-09-10 16:12 | disposition designated cancer center or children's hospital (05) | DRG 191 ==
LOC: EC 18:28 → 4SSUR 21:09 → OBSVTOIN 09-08 09:57
PROVIDERS: ADMIT Hospitalist; ATTEND Hospitalist
DX: J44.0 Chronic obstructive pulmonary disease with (acute) lower respiratory infection (principal); J90 Pleural effusion, not elsewhere classified; J44.1 Chronic obstructive pulmonary disease with (acute) exacerbation; J20.9 Acute bronchitis, unspecified; F10.21 Alcohol dependence, in remission; I25.10 Atherosclerotic heart disease of native coronary artery without angina pectoris; F41.9 Anxiety disorder, unspecified; I10 Essential (primary) hypertension; F32.9 Major depressive disorder, single episode, unspecified; F17.210 Nicotine dependence, cigarettes, uncomplicated; Z71.6 Tobacco abuse counseling; Z79.899 Other long term (current) drug therapy; Z95.1 Presence of aortocoronary bypass graft
CPT/HCPCS: 36415; 71046; 80048; 80053; 83605; 83880; 84484; 85025; 85610; 85730; 87040; 87502; 93005; 94640; 94760; 96365; 96372; 96375; 99285